=== PATIENT | male | born 1985 | race American Indian/Alaskan Native ===

== ENCOUNTER 2017-02-08 00:18 | Emergency (ER) | payer SELFPAY ==
--- NOTE | 2017-02-08 02:16 | Emergency Department Report ---
ED General Adult HPI - General Chief complaint: Urogenital-Male Stated complaint: urogenital problem Time Seen by Provider: 02/08/17 01:09 Source: patient Mode of arrival: Ambulatory Limitations: No Limitations - History of Present Illness Initial comments: This is a 31-year-old male. He is previously unknown to me. Past medical history includes anxiety, depression. Patient presents to the ER with burning and itching lesions on his suprapubic region, testicles and rectum for the past 2 months. Denies headache, neck pain , chest pain, abdominal pain, shortness of breath. Denies testicular pain. He reports these lesions are concerning for herpes. He reports that he is putting cream on them, and this is not really helping. He reports no sexual contact within the past year, he reports that last year he was intimate with one male partner, and the patient assumed the past several, and reports that he did not have the partner wear barrier protection. -: Gradual, month(s) Location: genitals (rectum) Quality: burning Consistency: intermittent Improves with: none Worsens with: none Associated Symptoms: denies other symptoms - Related Data Previous Rx's Medication Instructions Recorded Last Taken Type ALPRAZolam [Xanax] 0.25 mg PO Q12H #10 tablet 08/09/13 Unknown Rx Lidocaine Viscous 2% [Xylocaine 10 ml MM Q4H PRN #240 ml 08/09/13 Unknown Rx Viscous 2%] ALPRAZolam [Xanax TAB] 0.25 mg PO TID PRN #20 tab 11/08/14 Unknown Rx Ibuprofen [Motrin 800 MG tab] 800 mg PO TID PRN #30 tablet 11/08/14 Unknown Rx Oxycodone HCl [Oxecta] 5 mg PO Q6H PRN #10 tablet.orl 11/08/14 Unknown Rx Acyclovir [Zovirax Tab] 800 mg PO 5XD #35 tab 02/08/17 Unknown Rx Permethrin 5% [Acticin 5% CREAM] 1 applicatio TP ONCE #2 tube 02/08/17 Unknown Rx Allergies Allergy/AdvReac Type Severity Reaction Status Date / Time No Known Allergies Allergy Unverified 03/06/13 16:40 ED Review of Systems ROS: Stated complaint: urogenital problem Other details as noted in HPI Constitutional: denies: fever Eyes: denies: eye discharge ENT: denies: throat pain, congestion Respiratory: denies: cough Cardiovascular: denies: chest pain Gastrointestinal: denies: abdominal pain Genitourinary: denies: urgency, dysuria, discharge, testicular pain Skin: rash, lesions Neurological: denies: headache Psychiatric: anxiety ED Past Medical Hx - Past Medical History Previous Medical History?: Yes Hx Hypertension: Yes (not on medication) Hx Psychiatric Treatment: Yes (ANXIETY, DEPRESSION) Additional medical history: ANXIETY, depression - Surgical History Past Surgical History?: No - Social History Smoking Status: Current Every Day Smoker Substance Use Type: Marijuana - Medications Home Medications: Home Medications Medication Instructions Recorded Confirmed Last Taken Type ALPRAZolam [Xanax] 0.25 mg PO Q12H #10 tablet 08/09/13 Unknown Rx Lidocaine Viscous 2% [Xylocaine 10 ml MM Q4H PRN #240 ml 08/09/13 Unknown Rx Viscous 2%] ALPRAZolam [Xanax TAB] 0.25 mg PO TID PRN #20 tab 11/08/14 Unknown Rx Ibuprofen [Motrin 800 MG tab] 800 mg PO TID PRN #30 tablet 11/08/14 Unknown Rx Oxycodone HCl [Oxecta] 5 mg PO Q6H PRN #10 tablet.orl 11/08/14 Unknown Rx Acyclovir [Zovirax Tab] 800 mg PO 5XD #35 tab 02/08/17 Unknown Rx Permethrin 5% [Acticin 5% CREAM] 1 applicatio TP ONCE #2 tube 02/08/17 Unknown Rx ED Physical Exam - General Limitations: No Limitations General appearance: alert, in no apparent distress - Head Head exam: Present: atraumatic, normocephalic - Eye Eye exam: Present: normal appearance, EOMI. Absent: nystagmus - ENT ENT exam: Present: normal exam, normal orophraynx, mucous membranes moist, normal external ear exam - Neck Neck exam: Present: normal inspection, full ROM. Absent: tenderness, meningismus - Respiratory Respiratory exam: Present: normal lung sounds bilaterally. Absent: respiratory distress, wheezes, rales, rhonchi, stridor, chest wall tenderness, accessory muscle use, decreased breath sounds, prolonged expiratory - Cardiovascular Cardiovascular Exam: Present: regular rate, normal rhythm, normal heart sounds. Absent: bradycardia, tachycardia, irregular rhythm, systolic murmur, diastolic murmur, rubs, gallop - GI/Abdominal GI/Abdominal exam: Present: soft, normal bowel sounds. Absent: distended, tenderness, guarding, rebound, rigid, pulsatile mass - Rectal Rectal exam: Present: normal inspection, other (no blood. No hemorrhoids. Punctate lesions noted close to the anus. They are nontender.) - exam: Present: other (punctate lesions are noted on the left testicle and suprapubic region. There are no condylomata. Lesions are nontender.). Absent : normal inspection (escorted by ER nurse Reyna Valdez), testicular tenderness, urethral discharge External exam: Present: other (there is no testicular tenderness. There is normal testicular lie bilaterally. There is normal cremasteric reflex bilaterally.). Absent: normal external exam - Extremities Exam Extremities exam: Present: normal inspection, full ROM, normal capillary refill. Absent: pedal edema, joint swelling, calf tenderness - Back Exam Back exam: Present: normal inspection, full ROM. Absent: tenderness, CVA tenderness (R), CVA tenderness (L), muscle spasm, paraspinal tenderness, vertebral tenderness - Neurological Exam Neurological exam: Present: alert, oriented X3, normal gait, other (Extraocular movements intact. Tongue midline. No facial droop. Facial sensation intact to light touch in the V1, V2, V3 distribution bilaterally. 5 and 5 strength in 4 extremities.. Sensation is intact to light touch in 4 extremities.). Absent : motor sensory deficit - Psychiatric Psychiatric exam: Present: normal affect, normal mood - Skin Skin exam: Present: warm, dry, intact, normal color. Absent: rash, erythema ED Course Vital Signs 02/08/17 02/08/17 02/08/17 00:29 00:52 02:16 Temperature 98.8 F 98.4 F Pulse Rate 115 H 98 H Respiratory 18 22 20 Rate Blood Pressure 156/100 Blood Pressure 147/107 [Left] O2 Sat by Pulse 100 99 100 Oximetry ED Medical Decision Making - Lab Data Vital Signs 02/08/17 02/08/17 00:29 00:52 Temperature 98.8 F Pulse Rate 115 H Respiratory 18 22 Rate Blood Pressure 156/100 O2 Sat by Pulse 100 99 Oximetry - Medical Decision Making Differential diagnosis: Pediculosis, herpetic lesions, syphilis Assessment and plan: 31-year-old male with 2 months of painless lesions, lesions do not appear to be superinfected, patient will be treated empirically for pediculosis and herpetic lesions. Given that this is been present for 2 months and does not appear to be superinfected, the patient does not require emergent blood work at this time. The patient is counseled to practice safe sex , and to follow-up with an outpatient primary care doctor or the health department to be further evaluated for syphilis, hepatitis and HIV. Critical care attestation.: If time is entered above; I have spent that time in minutes in the direct care of this critically ill patient, excluding procedure time. ED Disposition Clinical Impression: Rash Disposition: DC-01 TO HOME OR SELFCARE Is pt being admited?: No Does the pt Need Aspirin: No Condition: Stable Instructions: Genital Herpes Simplex (ED), Pubic Lice (ED) Additional Instructions: As we discussed, I am uncertain if the lesions are coming from pediculosis ( pubic lice), or herpetic lesions. syphilis also a possibility. Permethrin cream as directed. Use the acyclovir as directed. Wash all clothing and undergarments with hot water and soap. Follow-up with a primary care doctor or the health department within the next month for outpatient testing for syphilis, hepatitis, HIV. Make certain to practice safe sex with any new partner. please turn to the ER right away with fevers, chills, chest pain, shortness of breath, intractable nausea or vomiting, confusion, inability to tolerate feeds. Prescriptions: Acyclovir [Zovirax Tab] 800 mg PO 5XD #35 tab Permethrin 5% [Acticin 5% CREAM] 1 applicatio TP ONCE #2 tube Referrals: EBEN SOTO MD [Primary Care Provider] - 3-5 Days ROXY TAYLOR MD [Staff Physician] - 3-5 Days [facility] [Provider Group] - 3-5 Days [facility] [Outside] - 3-5 Days
[2017-02-08 02:19] VITALS: BP 147/107
== END 2017-02-08 02:45 | disposition home or self-care (01) ==
LOC: ED 00:18
DX: R21 Rash and other nonspecific skin eruption (principal); F41.9 Anxiety disorder, unspecified; F32.9 Major depressive disorder, single episode, unspecified; I10 Essential (primary) hypertension; F17.200 Nicotine dependence, unspecified, uncomplicated; F12.10 Cannabis abuse, uncomplicated
CPT/HCPCS: 99282

== ENCOUNTER 2020-06-13 06:51 | Emergency (ER) | payer SELFPAY ==
[2020-06-13] MEDS ORDERED: ASPIRIN 325 MG TAB PO ONE (07:58)
--- NOTE | 2020-06-13 08:30 | XRay Report ---
CHEST 2 VIEWS INDICATION / CLINICAL INFORMATION: Chest Pain. COMPARISON: 11/08/14 FINDINGS: SUPPORT DEVICES: None. HEART / MEDIASTINUM: No significant abnormality. LUNGS / PLEURA: No significant pulmonary or pleural abnormality. No pneumothorax. ADDITIONAL FINDINGS: No significant additional findings. IMPRESSION: 1. No acute findings. No change. Signer Name: Jhony Yepez MD Signed: 06/13/2020 8:25 AM Workstation Name: [id number]
[2020-06-13 09:53] LABS: Basophils % (Auto) 0.8 % (0.0-1.8); Eosinophils # (Auto) 0.2 K/mm3 (0.0-0.4); Eosinophils % (Auto) 4.7 % (0.0-4.3); Hemoglobin 14.6 gm/dl (11.8-15.2); Lymphocytes # (Auto) 1.7 K/mm3 (1.2-5.4); Lymphocytes % (Auto) 42.6 % (13.4-35.0); Mean Corpuscular HGB Conc 32 % (32-34); Mean Corpuscular Volume 90 fl (84-94); Monocytes # (Auto) 0.5 K/mm3 (0.0-0.8); Monocytes % (Auto) 12.7 % (0.0-7.3); Platelet Count 384 K/mm3 (140-440); Red Cell Distribution Width 14.5 % (13.2-15.2)
[2020-06-13 09:57] LABS: BUN/Creatinine Ratio 11; Blood Urea Nitrogen 11 mg/dL (9-20); Calcium 10.5 mg/dL (8.4-10.2); Hemolysis Index 17
--- NOTE | 2020-06-13 12:13 | Emergency Department Report ---
ED General Adult HPI - General Chief complaint: Arrhythmia/Palpitations Stated complaint: CHEST PAIN PUI?: No Time Seen by Provider: 06/13/20 11:13 Source: patient, RN notes reviewed, old records reviewed Mode of arrival: Ambulatory Limitations: No Limitations - History of Present Illness Initial comments: The patient was evaluated in the emergency department for symptoms described in the history of present illness. He/she was evaluated in the context of the global COVID-19 pandemic, which necessitated consideration that the patient might be at risk for infection with the virus that causes COVID-19. Institutional protocols and algorithms that pertain to the evaluation of patients at risk for COVID-19 are in a state of rapid change based on information released by regulatory bodies including the CDC and federal and [facility] organizations. These policies and algorithms were followed during the patient's care in the emergency department. Please note that these policies, procedures and recommendations changed on a rapid basis. The patient is a 34-year-old gentleman. I have evaluated this patient in the past. He is left-hand dominant, and endorses a history of anxiety. He presents to the ER today with a complaint of left-sided chest wall pain. He states "my chest hurts when I press on it." This pain has been intermittent and present for the past 5 days. It does not radiate to the back, arms or neck. Th ere is no vomiting, diaphoresis or exertional shortness of breath. No travel, oral contraceptive use, or surgeries. Denies DVT and pulmonary embolism risk factors. No family history of ischemic heart disease, or DVT, pulmonary embolism. Positive relief with [id number] Tylenol. Has not used ibuprofen or NSAIDs. No additional injuries. No additional complaints. -: Gradual, days(s) Location: chest Radiation: non-radiation Severity scale (0 -10): 0 Consistency: intermittent Improves with: rest Worsens with: movement Associated Symptoms: denies other symptoms - Related Data Previous Rx's Medication Instructions Recorded Last Taken Type ALPRAZolam [Xanax] 0.25 mg PO Q12H #10 tablet 08/09/13 Unknown Rx Lidocaine Viscous 2% [Xylocaine 10 ml MM Q4H PRN #240 ml 08/09/13 Unknown Rx Viscous 2%] ALPRAZolam [Xanax TAB] 0.25 mg PO TID PRN #20 tab 11/08/14 Unknown Rx Ibuprofen [Motrin 800 MG tab] 800 mg PO TID PRN #30 tablet 11/08/14 Unknown Rx Oxycodone HCl [Oxecta] 5 mg PO Q6H PRN #10 tablet.orl 11/08/14 Unknown Rx Acyclovir [Zovirax Tab] 800 mg PO 5XD #35 tab 02/08/17 Unknown Rx Permethrin 5% [Acticin 5% CREAM] 1 applicatio TP ONCE #2 tube 02/08/17 Unknown Rx Allergies Allergy/AdvReac Type Severity Reaction Status Date / Time No Known Allergies Allergy Unverified 03/06/13 16:40 ED Review of Systems ROS: Stated complaint: CHEST PAIN Other details as noted in HPI Comment: All other systems reviewed and negative Cardiovascular: chest pain (Reproducible left-sided chest wall pain) Psychiatric: anxiety ED Past Medical Hx - Past Medical History Previous Medical History?: Yes Hx Hypertension: Yes Hx Psychiatric Treatment: Yes (ANXIETY, DEPRESSION) Additional medical history: ANXIETY, depression - Surgical History Past Surgical History?: No - Social History Smoking Status: Current Every Day Smoker Substance Use Type: Alcohol - Medications Home Medications: Home Medications Medication Instructions Recorded Confirmed Last Taken Type ALPRAZolam [Xanax] 0.25 mg PO Q12H #10 tablet 08/09/13 Unknown Rx Lidocaine Viscous 2% [Xylocaine 10 ml MM Q4H PRN #240 ml 08/09/13 Unknown Rx Viscous 2%] ALPRAZolam [Xanax TAB] 0.25 mg PO TID PRN #20 tab 11/08/14 Unknown Rx Ibuprofen [Motrin 800 MG tab] 800 mg PO TID PRN #30 tablet 11/08/14 Unknown Rx Oxycodone HCl [Oxecta] 5 mg PO Q6H PRN #10 tablet.orl 11/08/14 Unknown Rx Acyclovir [Zovirax Tab] 800 mg PO 5XD #35 tab 02/08/17 Unknown Rx Permethrin 5% [Acticin 5% CREAM] 1 applicatio TP ONCE #2 tube 02/08/17 Unknown Rx ED Physical Exam - General Limitations: No Limitations General appearance: alert, in no apparent distress - Head Head exam: Present: atraumatic, normocephalic - Eye Eye exam: Present: normal appearance, EOMI. Absent: nystagmus - ENT ENT exam: Present: normal exam, normal orophraynx, mucous membranes moist, normal external ear exam - Neck Neck exam: Present: normal inspection, full ROM. Absent: tenderness, meningismus - Respiratory Respiratory exam: Present: normal lung sounds bilaterally, chest wall tenderness. Absent: respiratory distress, wheezes, rales, rhonchi, stridor - Cardiovascular Cardiovascular Exam: Present: regular rate, normal rhythm, normal heart sounds. Absent: bradycardia, tachycardia, irregular rhythm, systolic murmur, diastolic murmur, rubs, gallop - GI/Abdominal GI/Abdominal exam: Present: soft. Absent: distended, tenderness, guarding, rebound, rigid, pulsatile mass - Rectal Rectal exam: Present: deferred - Extremities Exam Extremities exam: Present: normal inspection, full ROM, other (2+ pulses noted in the bilateral upper and lower extremities. There is no palpable cord. negative Homans sign. Muscular compartments are soft. The pelvis is stable.). Absent: pedal edema, calf tenderness - Back Exam Back exam: Present: normal inspection, full ROM. Absent: tenderness, CVA tenderness (R), CVA tenderness (L), paraspinal tenderness, vertebral tenderness - Neurological Exam Neurological exam: Present: alert, normal gait, other (No facial droop. Tongue midline. Extraocular movements intact bilaterally. Facial sensation intact to light touch in V1, V2, V3 distribution bilaterally. 5 and a 5 strength in 4 extremities. Sensation intact to light touch in 4 extremities.). Absent: motor sensory deficit - Psychiatric Psychiatric exam: Present: anxious - Skin Skin exam: Present: warm, dry, intact, normal color. Absent: rash ED Course Vital Signs 06/13/20 06/13/20 06/13/20 07:53 11:24 11:48 Temperature 98.1 F 98.2 F Pulse Rate 83 76 Respiratory 20 18 13 Rate Blood Pressure 139/105 O2 Sat by Pulse 100 100 100 Oximetry 06/13/20 11:55 Temperature Pulse Rate Respiratory 13 Rate Blood Pressure O2 Sat by Pulse Oximetry ED Medical Decision Making - Lab Data Result diagrams: 06/13/20 08:32 06/13/20 08:32 Vital Signs 06/13/20 06/13/20 06/13/20 07:53 11:24 11:48 Temperature 98.1 F 98.2 F Pulse Rate 83 76 Respiratory 20 18 13 Rate Blood Pressure 139/105 O2 Sat by Pulse 100 100 100 Oximetry 06/13/20 11:55 Temperature Pulse Rate Respiratory 13 Rate Blood Pressure O2 Sat by Pulse Oximetry Lab Results 06/13/20 06/13/20 Range/Units 08:32 08:32 WBC 3.9 L (4.5-11.0) K/mm3 RBC 5.00 (3.65-5.03) M/mm3 Hgb 14.6 (11.8-15.2) gm/dl Hct 45.0 (35.5-45.6) % MCV 90 (84-94) fl MCH 29 (28-32) pg MCHC 32 (32-34) % RDW 14.5 (13.2-15.2) % Plt Count 384 (140-440) K/mm3 Lymph % (Auto) 42.6 H (13.4-35.0) % [place] % (Auto) 12.7 H (0.0-7.3) % Eos % (Auto) 4.7 H (0.0-4.3) % Baso % (Auto) 0.8 (0.0-1.8) % Lymph # (Auto) 1.7 (1.2-5.4) K/mm3 [place] # (Auto) 0.5 (0.0-0.8) K/mm3 Eos # (Auto) 0.2 (0.0-0.4) K/mm3 Baso # (Auto) 0.0 (0.0-0.1) K/mm3 Seg Neutrophils % 39.2 L (40.0-70.0) % Seg Neutrophils # 1.5 L (1.8-7.7) K/mm3 Sodium 141 (137-145) mmol/L Potassium 5.0 (3.6-5.0) mmol/L Chloride 103.7 (98-107) mmol/L Carbon Dioxide 28 (22-30) mmol/L Anion Gap 14 mmol/L BUN 11 (9-20) mg/dL Creatinine 1.0 (0.8-1.3) mg/dL Estimated GFR > 60 ml/min BUN/Creatinine Ratio 11 % Glucose 103 H (75-100) mg/dL Calcium 10.5 H (8.4-10.2) mg/dL Troponin T < 0.010 (0.00-0.029) ng/mL - EKG Data -: EKG Interpreted by Me EKG shows normal: sinus rhythm Rate: normal - EKG Data When compared to previous EKG there are: no significant change 06/13/20 12:10 Sinus rhythm, 75 bpm, normal axis, normal intervals, high left ventricular voltage, and minimal motion artifact. Age appropriate variant. Unchanged from prior EKG from October 2014. The EKG is not a STEMI. - Radiology Data Radiology results: pending, report reviewed, image reviewed CHEST 2 VIEWS INDICATION / CLINICAL INFORMATION: Chest Pain. COMPARISON: 11/08/14 FINDINGS: SUPPORT DEVICES: None. HEART / MEDIASTINUM: No significant abnormality. LUNGS / PLEURA: No significant pulmonary or pleural abnormality. No pneumothorax. ADDITIONAL FINDINGS: No significant additional findings. IMPRESSION: 1. No acute findings. No change. Signer Name: Jhony Yepez MD Signed: 06/13/2020 7:25 AM Workstation Name: [id number] - Medical Decision Making Differential diagnosis, including but not limited to: Costochondritis, GERD, gastritis, hiatal hernia, pneumonia, pericarditis, myocarditis, coronary artery disease Assessment and plan: 34-year-old gentleman, who was afebrile, with reassuring vital signs, who is not currently tachycardic, tachypneic or hypoxic, who denies DVT and pulmonary embolism risk factors, who is low risk by Wells criteria for pulmonary embolism, PERC negative, low risk for major adverse cardiac event as per heart score, symptoms present for 5 days, with reproducible left-sided chest wall pain. Laboratory studies, x-ray the chest were ordered prior to my personal evaluation, they are reviewed and appreciated and fairly unremarkable. Given lack of fever, tachycardia, unremarkable EKG, negative troponin, Myocarditis, pericarditis very unlikely. Symptoms present for 5 days, troponin negative x1, EKG unchanged from prior. Very unlikely to be coronary artery disease. Chest wall pain is reproducible, and by history, it gets worse when I press on my chest." Therefore, GERD, gastritis, hiatal hernia very unlikely. History and physical not suggestive of pneumonia. Radiology supports this Patient declined pain medication at this time. Rest, ice, compression, elevation, alternating Tylenol and Motrin, and avoidance of heavy lifting. Discussed this plan of care with the patient, who verbalized understanding. Critical care attestation.: If time is entered above; I have spent that time in minutes in the direct care of this critically ill patient, excluding procedure time. ED Disposition Clinical Impression: Chest wall pain Disposition: DC-01 TO HOME OR SELFCARE Is pt being admited?: No Does the pt Need Aspirin: No Condition: Stable Instructions: Chest Pain (ED), Chest Wall Pain, [id number] Additional Instructions: Rest, avoid heavy lifting, and strenuous physical activities. Alternate ice packs and heat packs as needed to the left chest wall for pain and discomfort. Patient may take ibuprofen [id number], 600 mg by mouth, with food, every 6 hours as needed for pain, alternating with Tylenol, 650 mg by mouth, every 4-6 hours as needed for pain, maximum daily dose of Tylenol to not exceed 3 g per 24 hours. Please follow-up with your primary care doctor within the next week. Participate in physical activities as tolerated, and avoid excessively heavy lifting. Please return to the emergency room right away with new pain, worsened pain, migration of pain, projectile vomiting, change in mental status, confusion, inability to tolerate liquid feeds, new, worsened or different symptoms not present on the initial emergency room evaluation. Referrals: ERNESTINA WHALEN MD [Staff Physician] - 7-10 days [facility] [Provider Group] - 7-10 days Forms: Work/School Release Form(ED)
[2020-06-13 12:32] VITALS: BP 145/104
== END 2020-06-13 13:01 | disposition home or self-care (01) ==
LOC: ED 06:51
DX: R07.89 Other chest pain (principal); I10 Essential (primary) hypertension; F41.9 Anxiety disorder, unspecified; F32.9 Major depressive disorder, single episode, unspecified; F17.200 Nicotine dependence, unspecified, uncomplicated; Z79.899 Other long term (current) drug therapy
CPT/HCPCS: 36415; 71046; 80048; 84484; 85025; 93005

== ENCOUNTER 2021-05-04 18:18 | Emergency (ER) | payer SELFPAY ==
[2021-05-04] MEDS ORDERED: ASPIRIN 325 MG TAB PO ONE (19:40)
--- NOTE | 2021-05-04 19:42 | Event Note ---
ED Screening Note ED Screening Note: pt presents for left sided CP that radiates to his left arm that began yesterday he states it is a sharp pain he has associated SOB he reports this morning he had a brief episode of syncope after he got up today pmhx htn and HIV he states he recently traveled to [place] he states he left his HIV medication at home for 5 days and just took it again today +smoker +family cardiac hx This initial assessment/diagnostic orders/clinical plan/treatment(s) is/are subject to change based on patients health status, clinical progression and re- assessment by fellow clinical providers in the ED. Further treatment and workup at subsequent clinical providers discretion. Patient/guardian urged not to elope from the ED as their condition may be serious if not clinically assessed and managed. Initial orders include: cp protocol
[2021-05-04 20:07] LABS: Basophils % (Auto) 1.4 % (0.0-1.8); Eosinophils # (Auto) 0.1 K/mm3 (0.0-0.4); Eosinophils % (Auto) 2.8 % (0.0-4.3); Hemoglobin 15.8 gm/dl (11.8-15.2); Lymphocytes # (Auto) 1.5 K/mm3 (1.2-5.4); Lymphocytes % (Auto) 42.5 % (13.4-35.0); Mean Corpuscular HGB Conc 32 % (32-34); Mean Corpuscular Volume 87 fl (84-94); Monocytes # (Auto) 0.4 K/mm3 (0.0-0.8); Monocytes % (Auto) 10.7 % (0.0-7.3); Platelet Count 353 K/mm3 (140-440); Red Blood Count 5.61 M/mm3 (3.65-5.03); Red Cell Distribution Width 14.3 % (13.2-15.2)
--- NOTE | 2021-05-04 20:10 | XRay Report ---
CHEST 2 VIEWS INDICATION / CLINICAL INFORMATION: Chest Pain. COMPARISON: 06/13/2020 FINDINGS: SUPPORT DEVICES: None. HEART / MEDIASTINUM: No significant abnormality. LUNGS / PLEURA: No significant pulmonary or pleural abnormality. No pneumothorax. ADDITIONAL FINDINGS: No significant additional findings. IMPRESSION: 1. No acute findings. Signer Name: Amos Moscoso MD Signed: 05/04/2021 8:05 PM Workstation Name: [id number]
[2021-05-04 20:40] LABS: Alanine Aminotransferase 29 units/L (7-56); Albumin 4.9 g/dL (3.9-5); BUN/Creatinine Ratio 14; Blood Urea Nitrogen 11 mg/dL (9-20); Calcium 9.8 mg/dL (8.4-10.2); Hemolysis Index 11
[2021-05-04] MEDS ORDERED: cloNIDine 0.1 MG TAB PO ONE (22:20)
--- NOTE | 2021-05-04 22:22 | Emergency Department Report ---
ED General Adult HPI - General Chief complaint: Chest Pain Stated complaint: CHESTPAIN AND DIZZINESS Time Seen by Provider: 05/04/21 21:47 Source: patient Mode of arrival: Ambulatory Limitations: No Limitations - History of Present Illness Initial comments: Patient is 32 years old male with history of hypertension and HIV. Patient presented to the ER complaining of left-sided chest pain for the last 3 days. Patient describes his chest pain as pressure with no radiation. Patient stated that he traveled last week and he forgot to take his medication with him. He stated that he was taking clonidine for his blood pressure. Patient denied any shortness of breath, fever or chills. - Related Data Previous Rx's Medication Instructions Recorded Last Taken Type ALPRAZolam [Xanax] 0.25 mg PO Q12H #10 tablet 08/09/13 Unknown Rx Lidocaine Viscous 2% [Xylocaine 10 ml MM Q4H PRN #240 ml 08/09/13 Unknown Rx Viscous 2%] ALPRAZolam [Xanax TAB] 0.25 mg PO TID PRN #20 tab 11/08/14 Unknown Rx Ibuprofen [Motrin 800 MG tab] 800 mg PO TID PRN #30 tablet 11/08/14 Unknown Rx Oxycodone HCl [Oxecta] 5 mg PO Q6H PRN #10 tablet.orl 11/08/14 Unknown Rx Acyclovir [Zovirax Tab] 800 mg PO 5XD #35 tab 02/08/17 Unknown Rx Permethrin 5% [Acticin 5% CREAM] 1 applicatio TP ONCE #2 tube 02/08/17 Unknown Rx amLODIPine 10 mg PO DAILY #30 tab 05/04/21 Unknown Rx lisinopriL [Zestril TAB] 20 mg PO QDAY #30 tablet 05/04/21 Unknown Rx Allergies Allergy/AdvReac Type Severity Reaction Status Date / Time No Known Allergies Allergy Verified 05/04/21 18:24 ED Review of Systems ROS: Stated complaint: CHESTPAIN AND DIZZINESS Other details as noted in HPI Comment: All other systems reviewed and negative Constitutional: denies: chills, fever Respiratory: denies: cough, shortness of breath, SOB with exertion Cardiovascular: chest pain. denies: palpitations Gastrointestinal: denies: abdominal pain, nausea, vomiting Musculoskeletal: denies: back pain Neurological: denies: headache, weakness, numbness, paresthesias, confusion Psychiatric: denies: depression, auditory hallucinations, visual hallucinations, homicidal thoughts ED Past Medical Hx - Past Medical History Hx Hypertension: Yes Hx Psychiatric Treatment: Yes (ANXIETY, DEPRESSION) Additional medical history: ANXIETY, depression - Social History Smoking Status: Current Every Day Smoker Substance Use Type: Alcohol - Medications Home Medications: Home Medications Medication Instructions Recorded Confirmed Last Taken Type ALPRAZolam [Xanax] 0.25 mg PO Q12H #10 tablet 08/09/13 Unknown Rx Lidocaine Viscous 2% [Xylocaine 10 ml MM Q4H PRN #240 ml 08/09/13 Unknown Rx Viscous 2%] ALPRAZolam [Xanax TAB] 0.25 mg PO TID PRN #20 tab 11/08/14 Unknown Rx Ibuprofen [Motrin 800 MG tab] 800 mg PO TID PRN #30 tablet 11/08/14 Unknown Rx Oxycodone HCl [Oxecta] 5 mg PO Q6H PRN #10 tablet.orl 11/08/14 Unknown Rx Acyclovir [Zovirax Tab] 800 mg PO 5XD #35 tab 02/08/17 Unknown Rx Permethrin 5% [Acticin 5% CREAM] 1 applicatio TP ONCE #2 tube 02/08/17 Unknown Rx amLODIPine 10 mg PO DAILY #30 tab 05/04/21 Unknown Rx lisinopriL [Zestril TAB] 20 mg PO QDAY #30 tablet 05/04/21 Unknown Rx ED Physical Exam - General Limitations: No Limitations General appearance: alert, in no apparent distress - Head Head exam: Present: atraumatic, normocephalic, normal inspection - Eye Eye exam: Present: normal appearance, PERRL - ENT ENT exam: Present: normal exam, normal orophraynx, mucous membranes moist - Neck Neck exam: Present: normal inspection, full ROM. Absent: tenderness, meningismus - Respiratory Respiratory exam: Present: normal lung sounds bilaterally - Cardiovascular Cardiovascular Exam: Present: regular rate, normal rhythm, normal heart sounds - GI/Abdominal GI/Abdominal exam: Present: soft, normal bowel sounds. Absent: distended, tende rness, guarding, rebound, rigid, organomegaly, mass, bruit, pulsatile mass, hernia - Extremities Exam Extremities exam: Present: normal inspection, full ROM, normal capillary refill. Absent: tenderness - Back Exam Back exam: Present: normal inspection, full ROM. Absent: CVA tenderness (R), CVA tenderness (L) - Neurological Exam Neurological exam: Present: alert, oriented X3, CN II-XII intact, normal gait. Absent: motor sensory deficit - Psychiatric Psychiatric exam: Present: normal mood - Skin Skin exam: Present: warm, intact, normal color ED Course Vital Signs 05/04/21 05/04/21 18:23 22:22 Temperature 98.1 F Pulse Rate 99 H 105 H Respiratory 16 Rate Blood Pressure 177/114 Blood Pressure 160/106 [Left] O2 Sat by Pulse 99 Oximetry ED Medical Decision Making - Lab Data Result diagrams: 05/04/21 19:53 05/04/21 19:53 - EKG Data -: EKG Interpreted by Me EKG shows normal: sinus rhythm Rate: normal - EKG Data Interpretation: no acute changes - Radiology Data Radiology results: report reviewed - Medical Decision Making Patient is 32 years old male with history of hypertension and HIV. Patient presented to the ER complaining of left-sided chest pain for the last 3 days. Patient describes his chest pain as pressure with no radiation. Patient stated that he traveled last week and he forgot to take his medication with him. He stated that he was taking amlodipine and lisinopril for his blood pressure. Patient denied any shortness of breath, fever or chills. EKG is unremarkable. Labs reviewed and is unremarkable including a negative troponin x2. Chest x-ray is negative for acute finding. Patient received clonidine 0.1 mg in the ER and stated that his chest pain is completely resolved. Patient given a refill for his low pressure and strongly advised to follow-up with his primary doctor in the next 2 to 3 days for outpatient cardiac work-up and advised to return to the ER if he develop any new symptoms. Critical care attestation.: If time is entered above; I have spent that time in minutes in the direct care of this critically ill patient, excluding procedure time. ED Disposition Clinical Impression: Acute chest pain, Malignant hypertension Disposition: HOME / SELF CARE / HOMELESS Is pt being admited?: No Condition: Stable Instructions: Chest Pain (ED), Hypertension (ED), Nonspecific Chest Pain, Adult, Hypertension, Adult, [id number] Prescriptions: amLODIPine 10 mg PO DAILY #30 tab lisinopriL [Zestril TAB] 20 mg PO QDAY #30 tablet Referrals: PRIMARY CARE, [Referring] - 3-5 Days
[2021-05-05 02:06] VITALS: BP 144/104
--- NOTE | 2021-05-05 08:39 | Electrocardiograph Report ---
[facility] Test Date: 2021-05-04 Test Time: 18:26:05 Pat Name: ANA EASTON Department: Room: Gender: M Rn Emergency: DARIN : 1985 Requested By: MARIAELENA ALANIS Order Number: [id number] Reading MD: Roddy Beebe Measurements Intervals [place] Rate: 82 P: 60 DE: 154 QRS: 83 QRSD: 99 T: 59 QT: 366 QTc: 428 Interpretive Statements Sinus rhythm Consider left ventricular hypertrophy No previous ECG available for comparison Electronically Signed On 05-05-2021 8:39:38 EDT by Roddy Beebe
== END 2021-05-04 23:50 | disposition home or self-care (01) ==
LOC: ED 18:18
DX: R07.9 Chest pain, unspecified (principal); I10 Essential (primary) hypertension; F17.200 Nicotine dependence, unspecified, uncomplicated
CPT/HCPCS: 36415; 71046; 80053; 84484; 85025; 85379; 93005; 99283